=== PATIENT | female | born 1970 | race Two or more races ===

== ENCOUNTER 2017-01-20 02:15 | Inpatient (IN) | payer MEDICAID ==
[~2017-01-20] VITALS: Ht 137.2 cm; Wt 50.6 kg
[2017-01-20] VITALS (15 sets, daily range): BP systolic 99–134; BP diastolic 53–92
[2017-01-20] MEDS ORDERED: IPRATROPIUM BROM 0.5 MG/2.5ML INH SOL ONE (02:37)
[2017-01-20] MEDS ORDERED: ALBUTEROL SULF 2.5 MG/0.5ML(0.5%) NEB SOLN ONE (02:37)
[2017-01-20 02:44] LABS: Basophils # (auto) 0.1 uL; Basophils % (auto) 0.3 % (0.0-2.0); DEFINITIVE VIEW TRANSMISSION; Eosinophils # (auto) 0 uL; Hematocrit 25.7 % (36.0-46.0); Hemoglobin 7.2 g/dL (12.2-16.2); Lymphocytes # (auto) 3.6 uL; Lymphocytes % (auto) 17.8 % (10.0-50.0); Mean Corpuscular Hemoglobin 15.8 pg (28.0-32.0); Mean Corpuscular Hgb Conc. 27.9 g/dL (32.0-36.0); Mean Corpuscular Volume 56.4 fL (80.0-100.0); Mean Platelet Volume 9.3 fL (7.4-10.4); Monocytes # (auto) 0.5 uL; Monocytes % (auto) 2.3 % (0.0-12.0); Neutrophils # (auto) 16.1 uL; Neutrophils % (auto) 79.6 % (37.0-80.0); White Blood Cell 20.3 10^3/uL (4.4-10.8)
[2017-01-20 02:55] LABS: Red Cell Distribution Width 23.6 % (11.6-16.0)
[2017-01-20 02:58] LABS: Platelet Count (auto) 886 10^3/uL (140-450)
[2017-01-20 03:11] LABS: B-Type Natriuretic Peptide 14.7 pg/mL (0-100)
[2017-01-20 03:12] LABS: Temperature: 20.4 C (20.0-25.0)
[2017-01-20 03:13] LABS: Albumin 3.4 g/dL (3.4-5.0); BUN/Creatinine Ratio 30.4; Bilirubin, Total 0.4 mg/dL (0.2-1.0); Calcium 7.9 mg/dL (8.5-10.1); Magnesium 2.1 mg/dL (1.6-2.6); Potassium 3.3 mmol/L (3.5-5.1); Total Protein 7.6 g/dL (6.4-8.2)
[2017-01-20 04:04] LABS: REFLEX LACTIC ACID YES OR NO YES
[2017-01-20 04:59] LABS: Anisocytosis Moderate; Hypochromia Marked; Microcytosis Marked; Ovalocytes MODERATE; Platelet Estimate Markedly Increased
[2017-01-20 05:13] LABS: Lactic Acid w/Reflex 2.6 mmol/L (0.4-2.0)
[2017-01-20 05:14] LABS: REFLEX LACTIC ACID YES OR NO NO
[2017-01-20] MEDS ORDERED: IPRATROPIUM BROM 0.5 MG/2.5ML INH SOL NEB ONE ×2 (05:45→09:00)
[2017-01-20] MEDS ORDERED: ALBUTEROL SULF 2.5 MG/0.5ML(0.5%) NEB SOLN NEB ONE ×2 (05:45→09:00)
[2017-01-20] MEDS ORDERED: SODIUM CHLORIDE 0.9% 250 ML IV ONE (07:14)
[2017-01-20] MEDS ORDERED: SODIUM CHLORIDE 0.9% 1,000 ML IV ONE ×3 (07:14)
[2017-01-20] MEDS ORDERED: metroNIDAZOLE 500MG/100ML 100 ML IV ONE (07:15)
[2017-01-20] MEDS ORDERED: PIPERACILLIN-TAZOB 3.375GM 100 ML IV ONE (07:15)
[2017-01-20] MEDS ORDERED: SODIUM BICARBONATE 8.4% INJ 50ML SYRINGE IV ONE (11:00)
[2017-01-20] MEDS ORDERED: EPINEPHrine HCL 1 MG/10 ML SYRG IV ONE (11:00)
[2017-01-20 11:12] LABS: Urine Bilirubin Negative (Negative); Urine Blood TRACE /uL (Negative); Urine Color Yellow (Yellow); Urine Glucose Normal (Normal); Urine RBC 2 /hpf (0 - 4); Urine Squamous Epithelial Cell FEW /hpf (<5); Urine Urobilinogen Normal (Negative)
[2017-01-20 11:15] LABS: Urine Ketone 2+ (Negative); Urine Nitrite POSITIVE (Negative)
[2017-01-20] MEDS ORDERED: cefTRIAXone 1GM/50ML D5W 50 ML IV ONE (11:30)
[2017-01-20] MEDS ORDERED: VANCOMYCIN PER PHARMACY 0 MG IV SCH (11:30)
[2017-01-20] MEDS ORDERED: TEMAZEPAM 15 MG CAP PO PRN (11:45)
[2017-01-20] MEDS ORDERED: DOCUSATE SOD 100 MG CAP PO PRN (11:45)
[2017-01-20] MEDS ORDERED: DEXTROSE (50%) 50ML SYRG IV PRN (11:45)
[2017-01-20] MEDS ORDERED: POTASSIUM CHL 10% (20 MEQ/15ML) ORAL SOLN PO ONE (11:45)
[2017-01-20] MEDS ORDERED: IOHEXOL 350 MG/ML 100ML IJ ONE (11:45)
[2017-01-20] MEDS ORDERED: NITROGLYCERIN 0.4 MG SL TAB SL PRN (11:45)
[2017-01-20] MEDS ORDERED: MORPHINE SULF INJ 2 MG/ML SYRINGE 1ML IV PRN (11:45)
[2017-01-20] MEDS ORDERED: HYDROcodone-ACET 5/325MG TAB PO PRN (11:45)
[2017-01-20] MEDS ORDERED: ENOXAPARIN SOD 40 MG/0.4 ML SYRINGE SC ONE (12:00)
[2017-01-20] MEDS ORDERED: ZINC SULFATE 220 MG CAP PO ONE (12:00)
[2017-01-20] MEDS ORDERED: MULTIPLE VITAMIN TAB PO ONE (12:00)
[2017-01-20] MEDS: VANCOMYCIN 750 MG in D5W 5% 250 ML IV SCH (13:04)
[2017-01-20] MEDS: SODIUM CHLORIDE 0.9% 1,000 ML IV SCH (14:14)
[2017-01-20 15:40] LABS: INR 1.05 (0.9-1.15); Prothrombin Time 11.3 sec (9.37-12.3)
[2017-01-20] MEDS: InsuLIN REG 1unit/0.01ml Soln (100units/ml) SC SCH ×2 (17:00→21:52)
[2017-01-20] MEDS: ACCU-CHEK COMFORT CURVE STRIP VI SCH ×2 (17:15→21:52)
[2017-01-20] MEDS: ASCORBIC ACID 500 MG TAB PO SCH (22:00)
[2017-01-20] MEDS: FAMOTIDINE 20 MG TAB PO SCH (22:00)
[2017-01-21] VITALS (10 sets, daily range): BP systolic 73–140; BP diastolic 31–88
[2017-01-21] MEDS: SODIUM CHLORIDE 0.9% 1,000 ML IV SCH ×2 (04:18→20:58)
[2017-01-21] MEDS: InsuLIN REG 1unit/0.01ml Soln (100units/ml) SC SCH ×4 (07:00→22:00)
[2017-01-21] MEDS: ACCU-CHEK COMFORT CURVE STRIP VI SCH ×4 (07:04→22:00)
[2017-01-21] MEDS: cefTRIAXone 1GM/50ML D5W 50 ML IV SCH (08:44)
[2017-01-21 08:52] LABS: Basophils # (auto) 0 uL; Basophils % (auto) 0.3 % (0.0-2.0); DEFINITIVE VIEW TRANSMISSION; Eosinophils # (auto) 0 uL; Hematocrit 39.8 % (36.0-46.0); Hemoglobin 12.6 g/dL (12.2-16.2); Lymphocytes # (auto) 1.6 uL; Lymphocytes % (auto) 14.1 % (10.0-50.0); Mean Corpuscular Hgb Conc. 31.5 g/dL (32.0-36.0); Mean Corpuscular Volume 66.4 fL (80.0-100.0); Mean Platelet Volume 9.2 fL (7.4-10.4); Monocytes # (auto) 0.6 uL; Monocytes % (auto) 5.4 % (0.0-12.0); Neutrophils % (auto) 80.2 % (37.0-80.0); Platelet Count (auto) 647 10^3/uL (140-450); SUSPECT VIEW TRANSMISSION; White Blood Cell 11.2 10^3/uL (4.4-10.8)
[2017-01-21 09:03] LABS: Red Cell Distribution Width 34.5 % (11.6-16.0)
[2017-01-21 09:14] LABS: Albumin 3.1 g/dL (3.4-5.0); Alkaline Phosphatase 112 U/L (45-117); Anion Gap 15 (5-15); Aspartate Aminotransferase 17 U/L (15-37); BUN/Creatinine Ratio 6.7; Bilirubin, Total 0.7 mg/dL (0.2-1.0); Blood Urea Nitrogen 1 mg/dL (7-18); Calcium 8.3 mg/dL (8.5-10.1); Carbon Dioxide 16 mmol/L (21-32); Chloride 115 mmol/L (98-107); GFR African American 689 mL/min; GFR Non-African American 569 mL/min; Glucose 103 mg/dL (74-106); Sodium 146 mmol/L (136-145); Total Protein 7.3 g/dL (6.4-8.2)
[2017-01-21 09:21] LABS: Potassium 2.6 mmol/L (3.5-5.1)
[2017-01-21] MEDS: FAMOTIDINE 20 MG TAB PO SCH ×2 (09:44→22:00)
[2017-01-21] MEDS: ZINC SULFATE 220 MG CAP PO SCH (09:44)
[2017-01-21] MEDS: ENOXAPARIN SOD 40 MG/0.4 ML SYRINGE SC SCH (09:44)
[2017-01-21] MEDS: ASCORBIC ACID 500 MG TAB PO SCH ×2 (09:44→22:00)
[2017-01-21] MEDS: MULTIPLE VITAMIN TAB PO SCH (09:44)
[2017-01-21] MEDS ORDERED: POTASSIUM CHLORIDE 40 MEQ, LIDOCAINE 1% (LOCAL ANESTH.) 4 ML in SODIUM CHL 0.9% 250 ML IV ONE ×2 (10:00→18:15)
[2017-01-21] MEDS: Boost Glucose Control 8 Ounces PO SCH ×3 (12:05→22:00)
[2017-01-21 15:11] LABS: Microcytosis Marked
[2017-01-21 15:13] LABS: Burr Cells MODERATE; Ovalocytes MODERATE
[2017-01-21 15:14] LABS: Anisocytosis Moderate; Hypochromia Marked
[2017-01-21 15:15] LABS: Platelet Estimate Increased
[2017-01-21] MEDS ORDERED: LIDOCAINE 1% HCL (LOCAL ANESTH.) INJ 20ML MDV ID ONE (16:00)
[2017-01-21] MEDS: VANCOMYCIN 750 MG in D5W 5% 250 ML IV SCH (16:22)
[2017-01-21 17:52] LABS: BUN/Creatinine Ratio 3.3; Calcium 6.7 mg/dL (8.5-10.1)
[2017-01-21 18:03] LABS: Potassium 2.9 mmol/L (3.5-5.1)
[2017-01-21] MEDS ORDERED: ALBUTEROL SULF 2.5 MG/0.5ML(0.5%) NEB SOLN ONE (20:14)
[2017-01-21] MEDS: SODIUM CHLOR 0.9% PF (SALINE LOCK) 10ML VIAL IV SCH (22:00)
[2017-01-21] MEDS ORDERED: VITAMINS A & D (TOPICAL) OINT 5GM TOP PRN (22:15)
[2017-01-22] VITALS (9 sets, daily range): BP systolic 95–138; BP diastolic 47–99
[2017-01-22 04:22] LABS: Albumin 2.6 g/dL (3.4-5.0); Alkaline Phosphatase 93 U/L (45-117); Anion Gap 13 (5-15); Aspartate Aminotransferase 19 U/L (15-37); Bilirubin, Total 0.7 mg/dL (0.2-1.0); Blood Urea Nitrogen 3 mg/dL (7-18); Calcium 8.3 mg/dL (8.5-10.1); Carbon Dioxide 12 mmol/L (21-32); Chloride 121 mmol/L (98-107); GFR African American 689 mL/min; GFR Non-African American 569 mL/min; Glucose 82 mg/dL (74-106); Sodium 146 mmol/L (136-145); Total Protein 6.1 g/dL (6.4-8.2)
[2017-01-22 04:26] LABS: Basophils # (auto) 0 uL; Basophils % (auto) 0.2 % (0.0-2.0); DEFINITIVE VIEW TRANSMISSION; Eosinophils # (auto) 0 uL; Eosinophils % (auto) 0.1 % (0.0-7.0); Hematocrit 34.3 % (36.0-46.0); Hemoglobin 10.7 g/dL (12.2-16.2); Lymphocytes # (auto) 1.9 uL; Lymphocytes % (auto) 13.8 % (10.0-50.0); Mean Corpuscular Hemoglobin 20.6 pg (28.0-32.0); Mean Corpuscular Hgb Conc. 31.3 g/dL (32.0-36.0); Mean Corpuscular Volume 66.1 fL (80.0-100.0); Mean Platelet Volume 9.5 fL (7.4-10.4); Monocytes # (auto) 0.6 uL; Monocytes % (auto) 3.9 % (0.0-12.0); Neutrophils # (auto) 11.5 uL; Platelet Count (auto) 605 10^3/uL (140-450); SUSPECT VIEW TRANSMISSION
[2017-01-22 04:38] LABS: Red Cell Distribution Width 34.6 % (11.6-16.0)
[2017-01-22 05:04] LABS: Anisocytosis Moderate; Burr Cells MODERATE; Hypochromia Marked; Platelet Estimate Increased
[2017-01-22 05:07] LABS: Ovalocytes MODERATE; Schistocytes FEW
[2017-01-22] MEDS: Boost Glucose Control 8 Ounces PO SCH ×4 (06:00→22:00)
[2017-01-22] MEDS: ACCU-CHEK COMFORT CURVE STRIP VI SCH ×2 (07:00→11:43)
[2017-01-22] MEDS: InsuLIN REG 1unit/0.01ml Soln (100units/ml) SC SCH ×2 (07:00→11:30)
[2017-01-22] MEDS: ZINC SULFATE 220 MG CAP PO SCH (10:00)
[2017-01-22] MEDS: FAMOTIDINE 20 MG TAB PO SCH ×2 (10:00→22:31)
[2017-01-22] MEDS: ASCORBIC ACID 500 MG TAB PO SCH ×2 (10:00→22:00)
[2017-01-22] MEDS: MULTIPLE VITAMIN TAB PO SCH (10:00)
[2017-01-22] MEDS: ENOXAPARIN SOD 40 MG/0.4 ML SYRINGE SC SCH (10:00)
[2017-01-22] MEDS: SODIUM CHLOR 0.9% PF (SALINE LOCK) 10ML VIAL IV SCH ×2 (10:06→22:30)
[2017-01-22] MEDS: cefTRIAXone 1GM/50ML D5W 50 ML IV SCH (10:06)
[2017-01-22] MEDS: ALBUTEROL SULF 2.5 MG/0.5ML(0.5%) NEB SOLN NEB SCH ×2 (10:20→18:18)
[2017-01-22] MEDS: IPRATROPIUM BROM 0.5 MG/2.5ML INH SOL NEB SCH ×3 (10:20→22:10)
[2017-01-22] MEDS: VANCOMYCIN 750 MG in D5W 5% 250 ML IV SCH (13:25)
[2017-01-22] MEDS: PIPERACILLIN-TAZOB 3.375GM 100 ML IV SCH (18:07)
[2017-01-22] MEDS: MORPHINE SULF INJ 2 MG/ML SYRINGE 1ML IV PRN (22:33)
[2017-01-22] MEDS: ONDANSETRON HCL 4 MG/2 ML VIAL IV PRN (22:34)
[2017-01-23] VITALS (10 sets, daily range): BP systolic 78–127; BP diastolic 26–99
[2017-01-23] MEDS: PIPERACILLIN-TAZOB 3.375GM 100 ML IV SCH ×5 (00:03→23:38)
[2017-01-23] MEDS: SODIUM CHLORIDE 0.9% 1,000 ML IV SCH ×3 (00:20→23:20)
[2017-01-23] MEDS: MORPHINE SULF INJ 2 MG/ML SYRINGE 1ML IV PRN (02:18)
[2017-01-23] MEDS: IPRATROPIUM BROM 0.5 MG/2.5ML INH SOL NEB SCH ×6 (02:21→22:20)
[2017-01-23] MEDS: Boost Glucose Control 8 Ounces PO SCH ×4 (05:40→21:34)
[2017-01-23 09:29] LABS: Basophils # (auto) 0.1 uL; Basophils % (auto) 0.8 % (0.0-2.0); DEFINITIVE VIEW TRANSMISSION; Eosinophils # (auto) 0 uL; Hematocrit 35.6 % (36.0-46.0); Hemoglobin 11.4 g/dL (12.2-16.2); Lymphocytes # (auto) 2.3 uL; Lymphocytes % (auto) 17.3 % (10.0-50.0); Mean Corpuscular Volume 65.8 fL (80.0-100.0); Mean Platelet Volume 10.2 fL (7.4-10.4); Monocytes # (auto) 0.8 uL; Monocytes % (auto) 5.9 % (0.0-12.0); Neutrophils # (auto) 10.3 uL; Platelet Count (auto) 583 10^3/uL (140-450); SUSPECT VIEW TRANSMISSION; White Blood Cell 13.5 10^3/uL (4.4-10.8)
[2017-01-23] MEDS: SODIUM CHLOR 0.9% PF (SALINE LOCK) 10ML VIAL IV SCH ×2 (10:00→21:34)
[2017-01-23] MEDS: ASCORBIC ACID 500 MG TAB PO SCH ×2 (10:00→21:34)
[2017-01-23 10:43] LABS: Calcium 8.5 mg/dL (8.5-10.1); Potassium 3.5 mmol/L (3.5-5.1)
[2017-01-23] MEDS: ZINC SULFATE 220 MG CAP PO SCH (10:46)
[2017-01-23] MEDS: FAMOTIDINE 20 MG TAB PO SCH ×2 (10:46→21:34)
[2017-01-23] MEDS: ENOXAPARIN SOD 40 MG/0.4 ML SYRINGE SC SCH (10:47)
[2017-01-23] MEDS: MULTIPLE VITAMIN TAB PO SCH (10:47)
[2017-01-23 14:17] LABS: Microcytosis Marked
[2017-01-23 14:18] LABS: Hypochromia Marked
[2017-01-23 14:20] LABS: Anisocytosis Marked
[2017-01-23 14:21] LABS: Burr Cells FEW; Ovalocytes MODERATE; Schistocytes FEW
[2017-01-23 14:22] LABS: Platelet Estimate Increased
[2017-01-23] MEDS: MUPIROCIN 2% OINT 22GM EACHNOSTRI SCH ×2 (16:26→21:34)
[2017-01-24] VITALS (10 sets, daily range): BP systolic 93–123; BP diastolic 64–93
[2017-01-24] MEDS: IPRATROPIUM BROM 0.5 MG/2.5ML INH SOL NEB SCH ×6 (02:00→22:37)
[2017-01-24] MEDS: ONDANSETRON HCL 4 MG/2 ML VIAL IV PRN (03:46)
[2017-01-24] MEDS: PIPERACILLIN-TAZOB 3.375GM 100 ML IV SCH ×4 (05:08→23:02)
[2017-01-24] MEDS: Boost Glucose Control 8 Ounces PO SCH ×4 (05:22→21:39)
[2017-01-24 07:24] LABS: Basophils # (auto) 0 uL; DEFINITIVE VIEW TRANSMISSION; Eosinophils # (auto) 0 uL; Mean Corpuscular Volume 65.4 fL (80.0-100.0); SUSPECT VIEW TRANSMISSION
[2017-01-24 07:30] LABS: Basophils % (auto) 0.2 % (0.0-2.0); Eosinophils % (auto) 0.2 % (0.0-7.0); Hematocrit 32.2 % (36.0-46.0); Hemoglobin 10.3 g/dL (12.2-16.2); Lymphocytes # (auto) 2.1 uL; Lymphocytes % (auto) 30.4 % (10.0-50.0); Mean Corpuscular Hemoglobin 20.9 pg (28.0-32.0); Mean Platelet Volume 9.2 fL (7.4-10.4); Monocytes # (auto) 0.7 uL; Monocytes % (auto) 10.3 % (0.0-12.0); Neutrophils % (auto) 58.9 % (37.0-80.0); Platelet Count (auto) 515 10^3/uL (140-450); White Blood Cell 6.8 10^3/uL (4.4-10.8)
[2017-01-24 08:17] LABS: Anisocytosis Marked; Burr Cells FEW; Giant Platelets Few; Hypochromia Marked; Microcytosis Marked; Ovalocytes MODERATE; Platelet Estimate Increased; Schistocytes FEW
[2017-01-24] MEDS: ZINC SULFATE 220 MG CAP PO SCH (09:34)
[2017-01-24] MEDS: ASCORBIC ACID 500 MG TAB PO SCH ×3 (09:34→21:41)
[2017-01-24] MEDS: SODIUM CHLOR 0.9% PF (SALINE LOCK) 10ML VIAL IV SCH ×2 (09:35→21:39)
[2017-01-24] MEDS: FAMOTIDINE 20 MG TAB PO SCH ×2 (09:35→21:39)
[2017-01-24] MEDS: MUPIROCIN 2% OINT 22GM EACHNOSTRI SCH ×2 (09:35→21:39)
[2017-01-24] MEDS: ENOXAPARIN SOD 40 MG/0.4 ML SYRINGE SC SCH ×2 (09:35→09:45)
[2017-01-24] MEDS: MULTIPLE VITAMIN TAB PO SCH (09:35)
[2017-01-24] MEDS ORDERED: LACTULOSE 20Gm/30ML SOLN PO ONE (11:15)
[2017-01-24] MEDS: ACETAMINOPHEN 325 MG TAB PO PRN (12:02)
[2017-01-24] MEDS: LACTULOSE 20Gm/30ML SOLN PO SCH ×2 (17:34→23:01)
[2017-01-24] MEDS: ALBUTEROL SULF 2.5 MG/0.5ML(0.5%) NEB SOLN NEB PRN ×2 (19:59→22:37)
[2017-01-24] MEDS ORDERED: LORazepam 2MG/ML-1ML VIAL IV ONE (23:00)
[2017-01-25] VITALS (69 sets, daily range): BP systolic 14–133; BP diastolic 13–91
[2017-01-25 02:00] LABS: DEFINITIVE VIEW TRANSMISSION; Hematocrit 33.6 % (36.0-46.0); Hemoglobin 10.2 g/dL (12.2-16.2); Mean Corpuscular Hemoglobin 20.5 pg (28.0-32.0); Mean Corpuscular Hgb Conc. 30.3 g/dL (32.0-36.0); Mean Corpuscular Volume 67.6 fL (80.0-100.0); Mean Platelet Volume 8.4 fL (7.4-10.4); Platelet Count (auto) 551 10^3/uL (140-450); SUSPECT VIEW TRANSMISSION; White Blood Cell 23.6 10^3/uL (4.4-10.8)
[2017-01-25 02:12] LABS: Metamyelocytes % 0; Myelocytes % 0; Promyelocytes % 0; Reactive Lymphocytes 0; Red Cell Distribution Width 34.8 % (11.6-16.0)
[2017-01-25] MEDS ORDERED: IOHEXOL 350 MG/ML 100ML IJ ONE (02:15)
[2017-01-25 02:17] LABS: Albumin 2.9 g/dL (3.4-5.0); Anion Gap 12 (5-15); Aspartate Aminotransferase 18 U/L (15-37); BUN/Creatinine Ratio 53.3; Blood Urea Nitrogen 8 mg/dL (7-18); Calcium 8.3 mg/dL (8.5-10.1); Carbon Dioxide 21 mmol/L (21-32); Chloride 108 mmol/L (98-107); GFR African American 689 mL/min; GFR Non-African American 569 mL/min; Glucose 213 mg/dL (74-106); Magnesium 2.1 mg/dL (1.6-2.6); Potassium 3.7 mmol/L (3.5-5.1); Sodium 141 mmol/L (136-145)
[2017-01-25 02:19] LABS: Alkaline Phosphatase 125 U/L (45-117); Bilirubin, Total 0.6 mg/dL (0.2-1.0); Total Protein 6.8 g/dL (6.4-8.2)
[2017-01-25] MEDS: IPRATROPIUM BROM 0.5 MG/2.5ML INH SOL NEB SCH ×6 (02:30→22:05)
[2017-01-25 03:12] LABS: Platelet Estimate Increased
[2017-01-25 03:13] LABS: Anisocytosis Marked; Burr Cells FEW; Giant Platelets Few; Hypochromia Marked; Microcytosis Marked; Ovalocytes FEW; Tear Drop Cells FEW
[2017-01-25] MEDS: SODIUM CHLORIDE 0.9% 1,000 ML IV SCH (05:23)
[2017-01-25] MEDS: LACTULOSE 20Gm/30ML SOLN PO SCH ×3 (05:23→18:00)
[2017-01-25] MEDS: PIPERACILLIN-TAZOB 3.375GM 100 ML IV SCH ×3 (05:23→22:00)
[2017-01-25] MEDS: Boost Glucose Control 8 Ounces PO SCH ×4 (05:24→22:00)
[2017-01-25] MEDS ORDERED: SODIUM CHLORIDE 0.9% 500 ML IV ONE (05:30)
[2017-01-25] MEDS: ALBUTEROL SULF 2.5 MG/0.5ML(0.5%) NEB SOLN NEB PRN ×4 (06:29→22:05)
[2017-01-25 08:50] LABS: DEFINITIVE VIEW TRANSMISSION; Hematocrit 34.2 % (36.0-46.0); Hemoglobin 10.3 g/dL (12.2-16.2); Mean Corpuscular Hemoglobin 20.4 pg (28.0-32.0); Mean Corpuscular Hgb Conc. 30.1 g/dL (32.0-36.0); Mean Corpuscular Volume 67.7 fL (80.0-100.0); Mean Platelet Volume 8.2 fL (7.4-10.4); Platelet Count (auto) 588 10^3/uL (140-450); SUSPECT VIEW TRANSMISSION; White Blood Cell 20.7 10^3/uL (4.4-10.8)
[2017-01-25 08:57] LABS: Red Cell Distribution Width 34.8 % (11.6-16.0)
[2017-01-25 08:58] LABS: Metamyelocytes % 0; Myelocytes % 0; Promyelocytes % 0; Reactive Lymphocytes 0
[2017-01-25 09:14] LABS: Albumin 2.7 g/dL (3.4-5.0); Bilirubin, Total 0.7 mg/dL (0.2-1.0); Calcium 8.2 mg/dL (8.5-10.1); Potassium 3.2 mmol/L (3.5-5.1); Total Protein 6.8 g/dL (6.4-8.2)
[2017-01-25] MEDS: FAMOTIDINE 20 MG TAB PO SCH ×2 (10:00→22:00)
[2017-01-25] MEDS: MUPIROCIN 2% OINT 22GM EACHNOSTRI SCH (10:00)
[2017-01-25] MEDS: MULTIPLE VITAMIN TAB PO SCH (10:00)
[2017-01-25] MEDS: ZINC SULFATE 220 MG CAP PO SCH (10:00)
[2017-01-25] MEDS: ASCORBIC ACID 500 MG TAB PO SCH ×2 (10:00→22:00)
[2017-01-25 10:04] LABS: Anisocytosis Marked; Burr Cells FEW; Giant Platelets Few; Hypochromia Marked; Microcytosis Marked; Ovalocytes FEW; Platelet Estimate Increased; Tear Drop Cells FEW
[2017-01-25] MEDS: SODIUM CHLOR 0.9% PF (SALINE LOCK) 10ML VIAL IV SCH ×2 (10:19→22:00)
[2017-01-25 11:04] LABS: Lactic Acid w/Reflex 2.1 mmol/L (0.4-2.0)
[2017-01-25 11:09] LABS: REFLEX LACTIC ACID YES OR NO NO
[2017-01-25] MEDS ORDERED: VANCOMYCIN PER PHARMACY 0 MG IV SCH (11:45)
[2017-01-25] MEDS ORDERED: VANCOMYCIN 1GM/250ML D5W 250 ML IV ONE (12:15)
[2017-01-25] MEDS: ENOXAPARIN SOD 40 MG/0.4 ML SYRINGE SC SCH (12:36)
[2017-01-25] MEDS ORDERED: POTASSIUM CHL 20MEQ/100ML 100 ML IV ONE (13:00)
[2017-01-25] MEDS: NOREPINEPHRINE BITARTRATE 250 ML IV SCH (13:00)
[2017-01-25] MEDS ORDERED: Replete/Fiber/Ultrapak 1 Liter GT SCH (14:30)
[2017-01-25] MEDS: ACETYLCYSTEINE 20%(200MG/ML) SOL 4ML NEB SCH ×3 (14:55→22:05)
[2017-01-26] VITALS (72 sets, daily range): BP systolic 89–147; BP diastolic 36–96
[2017-01-26] MEDS: PIPERACILLIN-TAZOB 3.375GM 100 ML IV SCH ×4 (01:00→17:43)
[2017-01-26] MEDS: IPRATROPIUM BROM 0.5 MG/2.5ML INH SOL NEB SCH ×6 (02:34→22:00)
[2017-01-26] MEDS: ALBUTEROL SULF 2.5 MG/0.5ML(0.5%) NEB SOLN NEB PRN (02:34)
[2017-01-26] MEDS: ACETYLCYSTEINE 20%(200MG/ML) SOL 4ML NEB SCH ×6 (02:35→22:00)
[2017-01-26] MEDS: SODIUM CHLORIDE 0.9% 1,000 ML IV SCH (05:30)
[2017-01-26] MEDS: Boost Glucose Control 8 Ounces PO SCH ×4 (06:00→22:04)
[2017-01-26] MEDS: LACTULOSE 20Gm/30ML SOLN PO SCH ×3 (06:00→12:13)
[2017-01-26 07:45] LABS: DEFINITIVE VIEW TRANSMISSION; Hematocrit 29.5 % (36.0-46.0); Hemoglobin 8.9 g/dL (12.2-16.2); Mean Corpuscular Hemoglobin 20.7 pg (28.0-32.0); Mean Corpuscular Hgb Conc. 30.3 g/dL (32.0-36.0); Mean Corpuscular Volume 68.4 fL (80.0-100.0); Mean Platelet Volume 9.2 fL (7.4-10.4); Platelet Count (auto) 500 10^3/uL (140-450); SUSPECT VIEW TRANSMISSION; White Blood Cell 6.7 10^3/uL (4.4-10.8)
[2017-01-26 07:57] LABS: Red Cell Distribution Width 35.7 % (11.6-16.0)
[2017-01-26 07:58] LABS: Metamyelocytes % 0; Myelocytes % 0; Promyelocytes % 0; Reactive Lymphocytes 0
[2017-01-26 08:23] LABS: Platelet Estimate Increased
[2017-01-26 08:24] LABS: Anisocytosis Marked; BUN/Creatinine Ratio 37.2; Calcium 8.3 mg/dL (8.5-10.1); Hypochromia Marked; Microcytosis Marked; Potassium 3.1 mmol/L (3.5-5.1)
[2017-01-26] MEDS: SODIUM CHLOR 0.9% PF (SALINE LOCK) 10ML VIAL IV SCH ×2 (10:00→22:04)
[2017-01-26] MEDS: FAMOTIDINE 20 MG TAB PO SCH (10:00)
[2017-01-26] MEDS: MULTIPLE VITAMIN TAB PO SCH (10:00)
[2017-01-26] MEDS: ENOXAPARIN SOD 40 MG/0.4 ML SYRINGE SC SCH (10:00)
[2017-01-26] MEDS: ASCORBIC ACID 500 MG TAB PO SCH ×2 (10:00→22:04)
[2017-01-26] MEDS: ZINC SULFATE 220 MG CAP PO SCH (10:00)
[2017-01-26] MEDS: VANCOMYCIN 1GM/250ML D5W 250 ML IV SCH ×2 (12:13)
[2017-01-26] MEDS ORDERED: PANTOPRAZOLE SODIUM 40 MG/10 ML VIAL IV ONE (12:15)
[2017-01-26] MEDS: NOREPINEPHRINE BITARTRATE 250 ML IV SCH (13:00)
[2017-01-27] VITALS (60 sets, daily range): BP systolic 87–150; BP diastolic 48–100
[2017-01-27] MEDS: PIPERACILLIN-TAZOB 3.375GM 100 ML IV SCH ×5 (00:29→23:45)
[2017-01-27] MEDS: VANCOMYCIN 1GM/250ML D5W 250 ML IV SCH ×2 (00:29→12:00)
[2017-01-27] MEDS: IPRATROPIUM BROM 0.5 MG/2.5ML INH SOL NEB SCH ×6 (02:22→22:22)
[2017-01-27] MEDS: ACETYLCYSTEINE 20%(200MG/ML) SOL 4ML NEB SCH ×6 (02:22→22:22)
[2017-01-27 03:37] LABS: Basophils # (auto) 0 uL; Basophils % (auto) 0.1 % (0.0-2.0); DEFINITIVE VIEW TRANSMISSION; Eosinophils # (auto) 0 uL; Hemoglobin 9.4 g/dL (12.2-16.2); Lymphocytes # (auto) 0.7 uL; Lymphocytes % (auto) 6.4 % (10.0-50.0); Mean Corpuscular Hgb Conc. 30.5 g/dL (32.0-36.0); Mean Corpuscular Volume 68.7 fL (80.0-100.0); Mean Platelet Volume 8.6 fL (7.4-10.4); Monocytes # (auto) 0.9 uL; Monocytes % (auto) 8.1 % (0.0-12.0); Neutrophils # (auto) 9.2 uL; Neutrophils % (auto) 85.4 % (37.0-80.0); Platelet Count (auto) 351 10^3/uL (140-450); SUSPECT VIEW TRANSMISSION; White Blood Cell 10.7 10^3/uL (4.4-10.8)
[2017-01-27 03:54] LABS: Red Cell Distribution Width 35.3 % (11.6-16.0)
[2017-01-27 03:57] LABS: Albumin 2.1 g/dL (3.4-5.0); Calcium 8.2 mg/dL (8.5-10.1); Magnesium 1.9 mg/dL (1.6-2.6)
[2017-01-27 04:01] LABS: Bilirubin, Total 0.6 mg/dL (0.2-1.0); Total Protein 5.8 g/dL (6.4-8.2)
[2017-01-27 04:06] LABS: Potassium 2.6 mmol/L (3.5-5.1)
[2017-01-27] MEDS: POTASSIUM CHL 20MEQ/100ML 100 ML IV SCH ×2 (04:39→06:53)
[2017-01-27 04:58] LABS: Anisocytosis Marked; Hypochromia Marked; Microcytosis Marked; Platelet Estimate Adequate
[2017-01-27 04:59] LABS: Ovalocytes MODERATE; Tear Drop Cells FEW
[2017-01-27] MEDS: SODIUM CHLORIDE 0.9% 1,000 ML IV SCH (05:30)
[2017-01-27] MEDS: Boost Glucose Control 8 Ounces PO SCH ×4 (06:00→22:00)
[2017-01-27] MEDS ORDERED: MAGNESIUM SULFATE 1GM/100ML 100 ML IV ONE (10:45)
[2017-01-27] MEDS: PANTOPRAZOLE SODIUM 40 MG/10 ML VIAL IV SCH (11:32)
[2017-01-27] MEDS: MULTIPLE VITAMIN TAB PO SCH (11:33)
[2017-01-27] MEDS: ZINC SULFATE 220 MG CAP PO SCH (11:33)
[2017-01-27] MEDS: ENOXAPARIN SOD 40 MG/0.4 ML SYRINGE SC SCH (11:33)
[2017-01-27] MEDS: SODIUM CHLOR 0.9% PF (SALINE LOCK) 10ML VIAL IV SCH ×2 (11:33→22:00)
[2017-01-27] MEDS: ASCORBIC ACID 500 MG TAB PO SCH ×2 (11:33→22:01)
[2017-01-27] MEDS: Fibersource Hn 1 Liter GT SCH (18:39)
[2017-01-28] VITALS (64 sets, daily range): BP systolic 82–140; BP diastolic 42–97
[2017-01-28] MEDS ORDERED: ALBUMIN 5% 250 ML IV ONE ×2 (00:06→00:15)
[2017-01-28 00:35] LABS: Basophils # (auto) 0 uL; Basophils % (auto) 0.3 % (0.0-2.0); DEFINITIVE VIEW TRANSMISSION; Eosinophils # (auto) 0 uL; Hematocrit 28.6 % (36.0-46.0); Hemoglobin 8.7 g/dL (12.2-16.2); Lymphocytes # (auto) 0.7 uL; Lymphocytes % (auto) 5.6 % (10.0-50.0); Mean Corpuscular Hemoglobin 20.6 pg (28.0-32.0); Mean Corpuscular Hgb Conc. 30.5 g/dL (32.0-36.0); Mean Corpuscular Volume 67.5 fL (80.0-100.0); Mean Platelet Volume 9.3 fL (7.4-10.4); Monocytes # (auto) 0.9 uL; Monocytes % (auto) 7.8 % (0.0-12.0); Neutrophils # (auto) 10.5 uL; Neutrophils % (auto) 86.3 % (37.0-80.0); Platelet Count (auto) 539 10^3/uL (140-450); SUSPECT VIEW TRANSMISSION; White Blood Cell 12.2 10^3/uL (4.4-10.8)
[2017-01-28 00:44] LABS: Red Cell Distribution Width 35.4 % (11.6-16.0)
[2017-01-28 00:58] LABS: BUN/Creatinine Ratio 62.5; Calcium 8.1 mg/dL (8.5-10.1); Magnesium 2.4 mg/dL (1.6-2.6); Potassium 3.2 mmol/L (3.5-5.1)
[2017-01-28 02:07] LABS: Anisocytosis Marked; Hypochromia Marked; Microcytosis Marked; Platelet Estimate Increased
[2017-01-28 02:08] LABS: Ovalocytes MODERATE; Tear Drop Cells FEW
[2017-01-28] MEDS ORDERED: MORPHINE SULF INJ 2 MG/ML SYRINGE 1ML ONE (02:25)
[2017-01-28] MEDS ORDERED: MORPHINE SULF INJ 2 MG/ML SYRINGE 1ML IV ONE (02:30)
[2017-01-28] MEDS: ACETYLCYSTEINE 20%(200MG/ML) SOL 4ML NEB SCH ×6 (02:48→22:18)
[2017-01-28] MEDS: IPRATROPIUM BROM 0.5 MG/2.5ML INH SOL NEB SCH ×6 (02:48→22:18)
[2017-01-28] MEDS: Boost Glucose Control 8 Ounces PO SCH ×4 (05:52→22:00)
[2017-01-28] MEDS: PIPERACILLIN-TAZOB 3.375GM 100 ML IV SCH ×4 (06:00→23:54)
[2017-01-28 06:41] LABS: Basophils # (auto) 0 uL; DEFINITIVE VIEW TRANSMISSION; Eosinophils # (auto) 0 uL; Hematocrit 25.6 % (36.0-46.0); Lymphocytes # (auto) 0.4 uL; Lymphocytes % (auto) 3.8 % (10.0-50.0); Mean Corpuscular Hemoglobin 21.1 pg (28.0-32.0); Mean Corpuscular Hgb Conc. 31.2 g/dL (32.0-36.0); Mean Corpuscular Volume 67.7 fL (80.0-100.0); Mean Platelet Volume 8.8 fL (7.4-10.4); Monocytes # (auto) 0.6 uL; Monocytes % (auto) 5.5 % (0.0-12.0); Neutrophils # (auto) 9.1 uL; Neutrophils % (auto) 90.7 % (37.0-80.0); Platelet Count (auto) 345 10^3/uL (140-450); SUSPECT VIEW TRANSMISSION; White Blood Cell 10.1 10^3/uL (4.4-10.8)
[2017-01-28 06:50] LABS: Red Cell Distribution Width 35.4 % (11.6-16.0)
[2017-01-28 07:07] LABS: Albumin 2.4 g/dL (3.4-5.0); BUN/Creatinine Ratio 68.2; Bilirubin, Total 0.7 mg/dL (0.2-1.0); Calcium 8.2 mg/dL (8.5-10.1); Magnesium 2.3 mg/dL (1.6-2.6); Total Protein 5.6 g/dL (6.4-8.2)
[2017-01-28 07:10] LABS: Potassium 2.7 mmol/L (3.5-5.1)
[2017-01-28] MEDS: SODIUM CHLORIDE 0.9% 1,000 ML IV SCH (08:00)
[2017-01-28] MEDS: POTASSIUM CHL 20MEQ/100ML 100 ML IV SCH ×3 (08:07→11:45)
[2017-01-28] MEDS: ASCORBIC ACID 500 MG TAB PO SCH ×2 (10:09→22:12)
[2017-01-28] MEDS: MULTIPLE VITAMIN TAB PO SCH (10:09)
[2017-01-28] MEDS: ENOXAPARIN SOD 40 MG/0.4 ML SYRINGE SC SCH (10:09)
[2017-01-28] MEDS: SODIUM CHLOR 0.9% PF (SALINE LOCK) 10ML VIAL IV SCH ×2 (10:09→22:12)
[2017-01-28] MEDS: ZINC SULFATE 220 MG CAP PO SCH (10:09)
[2017-01-28] MEDS: PANTOPRAZOLE SODIUM 40 MG/10 ML VIAL IV SCH (10:09)
[2017-01-28] MEDS: METOCLOPRAMIDE HCL 5MG/ml INJ 2ml VIAL IV PRN (11:20)
[2017-01-28] MEDS: METOPROLOL TARTRATE 25 MG TAB PO SCH ×2 (11:21→22:12)
[2017-01-28] MEDS ORDERED: ENALAPRIL MALEATE 2.5 MG TAB PO ONE (11:30)
[2017-01-28 14:05] LABS: Platelet Estimate Adequate
[2017-01-28 14:06] LABS: Anisocytosis Marked; Hypochromia Marked; Microcytosis Marked
[2017-01-28 14:07] LABS: Burr Cells FEW; Ovalocytes MODE; Tear Drop Cells FEW
[2017-01-28] MEDS: FLUCONAZOLE 200MG/100ML 100 ML IV SCH ×2 (14:39→15:28)
[2017-01-28] MEDS: FERROUS SULFATE 325 MG TAB PO SCH (18:17)
[2017-01-28] MEDS: ALBUTEROL SULF 2.5 MG/0.5ML(0.5%) NEB SOLN NEB PRN ×2 (18:40→22:18)
[2017-01-29] VITALS (87 sets, daily range): BP systolic 105–144; BP diastolic 71–99
[2017-01-29] MEDS: Fibersource Hn 1 Liter GT SCH
[2017-01-29] MEDS: ACETYLCYSTEINE 20%(200MG/ML) SOL 4ML NEB SCH ×6 (02:21→22:40)
[2017-01-29] MEDS: IPRATROPIUM BROM 0.5 MG/2.5ML INH SOL NEB SCH ×6 (02:21→22:40)
[2017-01-29] MEDS: ALBUTEROL SULF 2.5 MG/0.5ML(0.5%) NEB SOLN NEB PRN ×4 (02:21→14:16)
[2017-01-29] MEDS: SODIUM CHLORIDE 0.9% 1,000 ML IV SCH (05:30)
[2017-01-29 05:40] LABS: Hemoglobin 10.9 g/dL (12.2-16.2)
[2017-01-29] MEDS: Boost Glucose Control 8 Ounces PO SCH (06:00)
[2017-01-29] MEDS: PIPERACILLIN-TAZOB 3.375GM 100 ML IV SCH ×3 (06:04→17:54)
[2017-01-29 06:05] LABS: Albumin 2.1 g/dL (3.4-5.0); BUN/Creatinine Ratio 45.8; Bilirubin, Total 0.9 mg/dL (0.2-1.0); Calcium 8.7 mg/dL (8.5-10.1); Total Protein 5.8 g/dL (6.4-8.2)
[2017-01-29 06:25] LABS: Potassium 2.9 mmol/L (3.5-5.1)
[2017-01-29] MEDS: POTASSIUM CHL 20MEQ/100ML 100 ML IV SCH ×3 (07:58→10:45)
[2017-01-29] MEDS: FERROUS SULFATE 325 MG TAB PO SCH (07:58)
[2017-01-29] MEDS: ACETAMINOPHEN 325 MG TAB PO PRN (08:37)
[2017-01-29] MEDS: METOCLOPRAMIDE HCL 5MG/ml INJ 2ml VIAL IV PRN (08:37)
[2017-01-29] MEDS: VANCOMYCIN 500 MG in D5W 5% 100 ML IV SCH (09:26)
[2017-01-29] MEDS: PANTOPRAZOLE SODIUM 40 MG/10 ML VIAL IV SCH (09:26)
[2017-01-29] MEDS: ENOXAPARIN SOD 40 MG/0.4 ML SYRINGE SC SCH (09:26)
[2017-01-29] MEDS: FLUCONAZOLE 200MG/100ML 100 ML IV SCH (09:26)
[2017-01-29] MEDS: SODIUM CHLOR 0.9% PF (SALINE LOCK) 10ML VIAL IV SCH ×2 (09:26→21:41)
[2017-01-29] MEDS: ZINC SULFATE 220 MG CAP PO SCH (09:27)
[2017-01-29] MEDS: METOPROLOL TARTRATE 25 MG TAB PO SCH ×2 (09:27→22:01)
[2017-01-29] MEDS: MULTIPLE VITAMIN TAB PO SCH (09:27)
[2017-01-29] MEDS: ASCORBIC ACID 500 MG TAB PO SCH ×2 (09:27→22:01)
[2017-01-29] MEDS: ENALAPRIL MALEATE 2.5 MG TAB PO SCH (09:44)
[2017-01-30] VITALS (82 sets, daily range): BP systolic 89–149; BP diastolic 54–106
[2017-01-30] MEDS: ACETYLCYSTEINE 20%(200MG/ML) SOL 4ML NEB SCH ×6 (02:50→22:12)
[2017-01-30] MEDS: IPRATROPIUM BROM 0.5 MG/2.5ML INH SOL NEB SCH ×6 (02:50→22:12)
[2017-01-30 03:52] LABS: Hematocrit 33.6 % (36.0-46.0); Hemoglobin 10.4 g/dL (12.2-16.2)
[2017-01-30 04:13] LABS: BUN/Creatinine Ratio 57.9; Calcium 8.6 mg/dL (8.5-10.1); Magnesium 1.8 mg/dL (1.6-2.6); Potassium 3.1 mmol/L (3.5-5.1)
[2017-01-30] MEDS: SODIUM CHLORIDE 0.9% 1,000 ML IV SCH (05:30)
[2017-01-30] MEDS: PIPERACILLIN-TAZOB 3.375GM 100 ML IV SCH ×4 (06:16→18:02)
[2017-01-30 08:06] LABS: Basophils # (auto) 0 uL; Basophils % (auto) 0.1 % (0.0-2.0); DEFINITIVE VIEW TRANSMISSION; Eosinophils # (auto) 0 uL; Eosinophils % (auto) 0.1 % (0.0-7.0); Hematocrit 33.4 % (36.0-46.0); Hemoglobin 10.5 g/dL (12.2-16.2); Lymphocytes # (auto) 0.7 uL; Lymphocytes % (auto) 17.6 % (10.0-50.0); Mean Corpuscular Hemoglobin 22.1 pg (28.0-32.0); Mean Corpuscular Hgb Conc. 31.4 g/dL (32.0-36.0); Mean Corpuscular Volume 70.4 fL (80.0-100.0); Mean Platelet Volume 10.4 fL (7.4-10.4); Monocytes # (auto) 0.6 uL; Monocytes % (auto) 13.1 % (0.0-12.0); Neutrophils # (auto) 2.9 uL; Neutrophils % (auto) 69.1 % (37.0-80.0); Platelet Count (auto) 455 10^3/uL (140-450); SUSPECT VIEW TRANSMISSION; White Blood Cell 4.2 10^3/uL (4.4-10.8)
[2017-01-30 08:24] LABS: Red Cell Distribution Width 34.3 % (11.6-16.0)
[2017-01-30 09:55] LABS: Anisocytosis Marked; Hypochromia Marked; Platelet Estimate Adequate
[2017-01-30 09:56] LABS: Microcytosis Moderate; Ovalocytes FEW; Schistocytes FEW
[2017-01-30] MEDS: ZINC SULFATE 220 MG CAP PO SCH (10:06)
[2017-01-30] MEDS: VANCOMYCIN 500 MG in D5W 5% 100 ML IV SCH (10:06)
[2017-01-30] MEDS: SODIUM CHLOR 0.9% PF (SALINE LOCK) 10ML VIAL IV SCH ×2 (10:06→21:48)
[2017-01-30] MEDS: FLUCONAZOLE 200MG/100ML 100 ML IV SCH (10:06)
[2017-01-30] MEDS: PANTOPRAZOLE SODIUM 40 MG/10 ML VIAL IV SCH (10:06)
[2017-01-30] MEDS: ENOXAPARIN SOD 40 MG/0.4 ML SYRINGE SC SCH (10:07)
[2017-01-30] MEDS: MULTIPLE VITAMIN TAB PO SCH (10:07)
[2017-01-30] MEDS: ASCORBIC ACID 500 MG TAB PO SCH ×2 (10:07→21:48)
[2017-01-30] MEDS: METOPROLOL TARTRATE 25 MG TAB PO SCH ×2 (10:07→21:48)
[2017-01-30] MEDS: ENALAPRIL MALEATE 2.5 MG TAB PO SCH (10:11)
[2017-01-30] MEDS ORDERED: MAGNESIUM SULFATE 1GM/100ML 100 ML IV ONE ×2 (11:30→12:13)
[2017-01-30] MEDS ORDERED: POTASSIUM CHLORIDE 40 MEQ, LIDOCAINE 1% (LOCAL ANESTH.) 4 ML in SODIUM CHL 0.9% 250 ML IV ONE (12:00)
[2017-01-30] MEDS ORDERED: POTASSIUM CHL 20MEQ/100ML 0 ML IV ONE (12:13)
[2017-01-30] MEDS: Fibersource Hn 1 Liter GT SCH (22:40)
[2017-01-31] VITALS (65 sets, daily range): BP systolic 99–155; BP diastolic 57–99
[2017-01-31] MEDS: PIPERACILLIN-TAZOB 3.375GM 100 ML IV SCH ×4 (00:07→18:41)
[2017-01-31] MEDS: IPRATROPIUM BROM 0.5 MG/2.5ML INH SOL NEB SCH ×6 (02:48→22:19)
[2017-01-31] MEDS: ACETYLCYSTEINE 20%(200MG/ML) SOL 4ML NEB SCH ×6 (02:48→22:19)
[2017-01-31] MEDS: SODIUM CHLORIDE 0.9% 1,000 ML IV SCH (03:21)
[2017-01-31 04:51] LABS: Albumin 1.7 g/dL (3.4-5.0); Anion Gap 7 (5-15); BUN/Creatinine Ratio 73.3; Blood Urea Nitrogen 11 mg/dL (7-18); Calcium 8.5 mg/dL (8.5-10.1); Carbon Dioxide 25 mmol/L (21-32); Chloride 112 mmol/L (98-107); GFR African American 689 mL/min; GFR Non-African American 569 mL/min; Glucose 143 mg/dL (74-106); Magnesium 1.8 mg/dL (1.6-2.6); Sodium 144 mmol/L (136-145)
[2017-01-31 05:01] LABS: Alkaline Phosphatase 125 U/L (45-117); Aspartate Aminotransferase 31 U/L (15-37); Bilirubin, Total 0.5 mg/dL (0.2-1.0); Total Protein 5.5 g/dL (6.4-8.2)
[2017-01-31 05:36] LABS: Basophils # (auto) 0 uL; DEFINITIVE VIEW TRANSMISSION; Eosinophils # (auto) 0 uL; Hematocrit 33.2 % (36.0-46.0); Hemoglobin 10.7 g/dL (12.2-16.2); Lymphocytes # (auto) 0.7 uL; Mean Corpuscular Hemoglobin 22.5 pg (28.0-32.0); Mean Corpuscular Hgb Conc. 32.1 g/dL (32.0-36.0); Mean Corpuscular Volume 69.9 fL (80.0-100.0); Mean Platelet Volume 10.5 fL (7.4-10.4); Monocytes # (auto) 0.7 uL; Neutrophils # (auto) 1.5 uL; Nucleated Red Blood Cells % 2.6 %; Platelet Count (auto) 418 10^3/uL (140-450); SUSPECT VIEW TRANSMISSION; White Blood Cell 2.9 10^3/uL (4.4-10.8)
[2017-01-31] MEDS: POTASSIUM CHL 20MEQ/100ML 100 ML IV SCH ×3 (06:34→11:53)
[2017-01-31 07:12] LABS: Anisocytosis Moderate; Burr Cells FEW; Giant Platelets Few; Hypochromia Moderate; Ovalocytes FEW; Platelet Estimate Adequate
[2017-01-31 07:13] LABS: Microcytosis Moderate
[2017-01-31] MEDS: FLUCONAZOLE 200MG/100ML 100 ML IV SCH (09:53)
[2017-01-31] MEDS: ZINC SULFATE 220 MG CAP PO SCH (09:54)
[2017-01-31] MEDS: METOPROLOL TARTRATE 25 MG TAB PO SCH ×2 (09:54→21:36)
[2017-01-31] MEDS: PANTOPRAZOLE SODIUM 40 MG/10 ML VIAL IV SCH (09:54)
[2017-01-31] MEDS: MULTIPLE VITAMIN TAB PO SCH (09:55)
[2017-01-31] MEDS: ENALAPRIL MALEATE 2.5 MG TAB PO SCH (09:55)
[2017-01-31] MEDS: ASCORBIC ACID 500 MG TAB PO SCH ×2 (09:55→21:36)
[2017-01-31] MEDS: ENOXAPARIN SOD 40 MG/0.4 ML SYRINGE SC SCH (09:56)
[2017-01-31] MEDS: SODIUM CHLOR 0.9% PF (SALINE LOCK) 10ML VIAL IV SCH ×2 (09:56→22:00)
[2017-01-31] MEDS: VANCOMYCIN 500 MG in D5W 5% 100 ML IV SCH (11:19)
[2017-02-01] VITALS (54 sets, daily range): BP systolic 86–168; BP diastolic 50–107
[2017-02-01] MEDS: IPRATROPIUM BROM 0.5 MG/2.5ML INH SOL NEB SCH ×6 (02:26→22:14)
[2017-02-01] MEDS: ACETYLCYSTEINE 20%(200MG/ML) SOL 4ML NEB SCH ×6 (02:26→22:14)
[2017-02-01 04:14] LABS: Chloride 110 mmol/L (98-107); Potassium 3.7 mmol/L (3.5-5.1); Sodium 143 mmol/L (136-145)
[2017-02-01 04:18] LABS: Anion Gap 7 (5-15); Blood Urea Nitrogen 12 mg/dL (7-18); Calcium 8.7 mg/dL (8.5-10.1); Carbon Dioxide 26 mmol/L (21-32); GFR African American 689 mL/min; GFR Non-African American 569 mL/min; Glucose 125 mg/dL (74-106); Magnesium 1.6 mg/dL (1.6-2.6)
[2017-02-01 04:23] LABS: Phosphorus 1.9 mg/dL (2.5-4.90)
[2017-02-01 04:36] LABS: Basophils # (auto) 0 uL; Basophils % (auto) 0.1 % (0.0-2.0); DEFINITIVE VIEW TRANSMISSION; Eosinophils # (auto) 0 uL; Eosinophils % (auto) 0.1 % (0.0-7.0); Hematocrit 31.1 % (36.0-46.0); Lymphocytes % (auto) 26.9 % (10.0-50.0); Mean Corpuscular Hemoglobin 22.6 pg (28.0-32.0); Mean Corpuscular Hgb Conc. 32.2 g/dL (32.0-36.0); Mean Corpuscular Volume 70.3 fL (80.0-100.0); Mean Platelet Volume 10.6 fL (7.4-10.4); Monocytes # (auto) 0.7 uL; Neutrophils % (auto) 53.4 % (37.0-80.0); Platelet Count (auto) 485 10^3/uL (140-450); SUSPECT VIEW TRANSMISSION; White Blood Cell 3.8 10^3/uL (4.4-10.8)
[2017-02-01 04:55] LABS: Monocytes % (auto) 19.5 % (0.0-12.0)
[2017-02-01] MEDS: SODIUM CHLORIDE 0.9% 1,000 ML IV SCH (05:30)
[2017-02-01 05:31] LABS: Anisocytosis Moderate; Ovalocytes FEW; Platelet Estimate Increased
[2017-02-01 05:32] LABS: Polychromasia Slight
[2017-02-01] MEDS: PIPERACILLIN-TAZOB 3.375GM 100 ML IV SCH ×2 (06:00)
[2017-02-01] MEDS ORDERED: METOPROLOL TARTRATE 1MG/1ML-5ML VIAL IV ONE ×3 (06:29→18:15)
[2017-02-01] MEDS: FLUCONAZOLE 200MG/100ML 100 ML IV SCH (10:11)
[2017-02-01] MEDS: ENOXAPARIN SOD 40 MG/0.4 ML SYRINGE SC SCH (10:12)
[2017-02-01] MEDS: ENALAPRIL MALEATE 2.5 MG TAB PO SCH (10:12)
[2017-02-01] MEDS: SODIUM CHLOR 0.9% PF (SALINE LOCK) 10ML VIAL IV SCH ×2 (10:12→22:26)
[2017-02-01] MEDS: ZINC SULFATE 220 MG CAP PO SCH (10:20)
[2017-02-01] MEDS: PANTOPRAZOLE SODIUM 40 MG/10 ML VIAL IV SCH (10:22)
[2017-02-01] MEDS: MULTIPLE VITAMIN TAB PO SCH (10:22)
[2017-02-01] MEDS: ASCORBIC ACID 500 MG TAB PO SCH ×2 (10:59→22:25)
[2017-02-01] MEDS: METOPROLOL TARTRATE 25 MG TAB PO SCH ×3 (11:00→23:25)
[2017-02-01] MEDS ORDERED: MAGNESIUM SULFATE 1GM/100ML 100 ML IV ONE (11:15)
[2017-02-01] MEDS ORDERED: POTASSIUM CHL 20MEQ/100ML 100 ML IV ONE (11:15)
[2017-02-01] MEDS ORDERED: MEROPENEM 500MG IVPB 100 ML IV ONE (11:15)
[2017-02-01 11:22] LABS: Potassium 2.6 mmol/L (3.5-5.1)
[2017-02-01] MEDS: VANCOMYCIN 500 MG in D5W 5% 100 ML IV SCH (12:30)
[2017-02-01] MEDS: ALBUTEROL SULF 2.5 MG/0.5ML(0.5%) NEB SOLN NEB PRN (22:15)
[2017-02-01] MEDS: MEROPENEM 500MG IVPB 100 ML IV SCH (22:24)
[2017-02-01] MEDS: ACETAMINOPHEN 325 MG TAB PO PRN (22:25)
[2017-02-02] VITALS (65 sets, daily range): BP systolic 85–145; BP diastolic 54–97
[2017-02-02] MEDS: METOPROLOL TARTRATE 25 MG TAB PO SCH ×3 (02:05→06:18)
[2017-02-02] MEDS: IPRATROPIUM BROM 0.5 MG/2.5ML INH SOL NEB SCH ×6 (02:17→22:27)
[2017-02-02] MEDS: ACETYLCYSTEINE 20%(200MG/ML) SOL 4ML NEB SCH ×6 (02:17→22:27)
[2017-02-02] MEDS: SODIUM CHLORIDE 0.9% 1,000 ML IV SCH (05:30)
[2017-02-02] MEDS: FLUCONAZOLE 200MG/100ML 100 ML IV SCH (07:54)
[2017-02-02] MEDS: ENALAPRIL MALEATE 2.5 MG TAB PO SCH (10:00)
[2017-02-02] MEDS: ENOXAPARIN SOD 40 MG/0.4 ML SYRINGE SC SCH (10:14)
[2017-02-02] MEDS: MULTIPLE VITAMIN TAB PO SCH (10:15)
[2017-02-02] MEDS: ZINC SULFATE 220 MG CAP PO SCH (10:15)
[2017-02-02] MEDS: PANTOPRAZOLE SODIUM 40 MG/10 ML VIAL IV SCH (10:15)
[2017-02-02] MEDS: ASCORBIC ACID 500 MG TAB PO SCH ×2 (10:15→22:09)
[2017-02-02] MEDS: SODIUM CHLOR 0.9% PF (SALINE LOCK) 10ML VIAL IV SCH ×2 (10:16→22:10)
[2017-02-02] MEDS: VANCOMYCIN 500 MG in D5W 5% 100 ML IV SCH (10:56)
[2017-02-02] MEDS ORDERED: DOCUSATE SOD 100 MG CAP PO PRN (11:00)
[2017-02-02] MEDS ORDERED: ACETAMINOPHEN 325 MG TAB PO PRN (11:00)
[2017-02-02] MEDS ORDERED: ASCORBIC ACID 500 MG TAB PO ONE (11:15)
[2017-02-02] MEDS ORDERED: ZINC SULFATE 220 MG CAP PO ONE (11:15)
[2017-02-02] MEDS: MEROPENEM 500MG IVPB 100 ML IV SCH ×2 (12:00→22:10)
[2017-02-03] VITALS (53 sets, daily range): BP systolic 111–139; BP diastolic 69–92
[2017-02-03] MEDS: IPRATROPIUM BROM 0.5 MG/2.5ML INH SOL NEB SCH ×6 (02:30→22:39)
[2017-02-03] MEDS: ACETYLCYSTEINE 20%(200MG/ML) SOL 4ML NEB SCH ×6 (02:30→22:39)
[2017-02-03 03:53] LABS: Hematocrit 27.7 % (36.0-46.0); Hemoglobin 8.6 g/dL (12.2-16.2)
[2017-02-03] MEDS: VANCOMYCIN 500 MG in D5W 5% 100 ML IV SCH ×2 (04:06→22:00)
[2017-02-03 04:16] LABS: Anion Gap 8 (5-15); Blood Urea Nitrogen 12 mg/dL (7-18); Carbon Dioxide 28 mmol/L (21-32); Chloride 109 mmol/L (98-107); Glucose 126 mg/dL (74-106); Magnesium 1.7 mg/dL (1.6-2.6); Potassium 3.2 mmol/L (3.5-5.1); Sodium 145 mmol/L (136-145)
[2017-02-03 04:26] LABS: GFR African American 689 mL/min; GFR Non-African American 569 mL/min
[2017-02-03] MEDS: SODIUM CHLORIDE 0.9% 1,000 ML IV SCH ×2 (04:38→20:59)
[2017-02-03] MEDS: ALBUTEROL SULF 2.5 MG/0.5ML(0.5%) NEB SOLN NEB PRN ×2 (06:24→18:31)
[2017-02-03] MEDS: MEROPENEM 500MG IVPB 100 ML IV SCH ×2 (10:03→21:39)
[2017-02-03] MEDS: FLUCONAZOLE 200MG/100ML 100 ML IV SCH (10:03)
[2017-02-03] MEDS: ENOXAPARIN SOD 40 MG/0.4 ML SYRINGE SC SCH (10:03)
[2017-02-03] MEDS: PANTOPRAZOLE SODIUM 40 MG/10 ML VIAL IV SCH (10:03)
[2017-02-03] MEDS: MULTIPLE VITAMIN TAB PO SCH (10:04)
[2017-02-03] MEDS: ZINC SULFATE 220 MG CAP PO SCH (10:04)
[2017-02-03] MEDS: ENALAPRIL MALEATE 2.5 MG TAB PO SCH (10:04)
[2017-02-03] MEDS: ASCORBIC ACID 500 MG TAB PO SCH ×2 (10:04→21:37)
[2017-02-03] MEDS: METOPROLOL TARTRATE 25 MG TAB PO SCH ×2 (10:05→21:38)
[2017-02-03] MEDS: SODIUM CHLOR 0.9% PF (SALINE LOCK) 10ML VIAL IV SCH ×2 (10:05→22:00)
[2017-02-03] MEDS ORDERED: VITAMINS A & D (TOPICAL) OINT 5GM TOP PRN (10:45)
[2017-02-03] MEDS: POTASSIUM CHL 20MEQ/100ML 100 ML IV SCH ×2 (12:48→14:45)
[2017-02-03] MEDS: MAGNESIUM SULFATE 1GM/100ML 100 ML IV SCH ×2 (13:50→14:45)
[2017-02-03] MEDS: Fibersource Hn 1 Liter GT SCH (20:00)
[2017-02-04] VITALS (74 sets, daily range): BP systolic 112–143; BP diastolic 49–103
[2017-02-04] MEDS: ACETYLCYSTEINE 20%(200MG/ML) SOL 4ML NEB SCH ×6 (02:00→23:04)
[2017-02-04] MEDS: IPRATROPIUM BROM 0.5 MG/2.5ML INH SOL NEB SCH ×6 (02:00→23:04)
[2017-02-04 05:30] LABS: Hematocrit 32.7 % (36.0-46.0); Hemoglobin 10.6 g/dL (12.2-16.2)
[2017-02-04] MEDS: ALBUTEROL SULF 2.5 MG/0.5ML(0.5%) NEB SOLN NEB PRN ×2 (06:50→10:32)
[2017-02-04] MEDS: MEROPENEM 500MG IVPB 100 ML IV SCH ×2 (10:00→21:53)
[2017-02-04] MEDS: ZINC SULFATE 220 MG CAP PO SCH (10:00)
[2017-02-04] MEDS: FLUCONAZOLE 200MG/100ML 100 ML IV SCH (10:31)
[2017-02-04] MEDS: PANTOPRAZOLE SODIUM 40 MG/10 ML VIAL IV SCH (10:31)
[2017-02-04] MEDS: ENOXAPARIN SOD 40 MG/0.4 ML SYRINGE SC SCH (10:31)
[2017-02-04] MEDS: MULTIPLE VITAMIN TAB PO SCH (10:32)
[2017-02-04] MEDS: ASCORBIC ACID 500 MG TAB PO SCH ×2 (10:32→21:52)
[2017-02-04] MEDS: METOPROLOL TARTRATE 25 MG TAB PO SCH ×2 (10:32→21:52)
[2017-02-04] MEDS: SODIUM CHLOR 0.9% PF (SALINE LOCK) 10ML VIAL IV SCH ×2 (10:32→21:53)
[2017-02-04] MEDS: ENALAPRIL MALEATE 2.5 MG TAB PO SCH (10:33)
[2017-02-04] MEDS ORDERED: ALBUTEROL SULF 2.5 MG/0.5ML(0.5%) NEB SOLN NEB PRN (11:00)
[2017-02-04] MEDS ORDERED: VANCOMYCIN PER PHARMACY 0 MG IV SCH (11:00)
[2017-02-04] MEDS: VANCOMYCIN 500 MG in D5W 5% 100 ML IV SCH (16:07)
[2017-02-04] MEDS: Fibersource Hn 1 Liter GT SCH (22:00)
[2017-02-05] VITALS (79 sets, daily range): BP systolic 98–142; BP diastolic 60–97
[2017-02-05] MEDS: ACETYLCYSTEINE 20%(200MG/ML) SOL 4ML NEB SCH ×6 (02:23→22:02)
[2017-02-05] MEDS: IPRATROPIUM BROM 0.5 MG/2.5ML INH SOL NEB SCH ×6 (02:23→22:02)
[2017-02-05 04:33] LABS: DEFINITIVE VIEW TRANSMISSION; Hematocrit 31.4 % (36.0-46.0); Hemoglobin 10.1 g/dL (12.2-16.2); Mean Corpuscular Hgb Conc. 32.1 g/dL (32.0-36.0); Mean Corpuscular Volume 71.6 fL (80.0-100.0); Mean Platelet Volume 9.6 fL (7.4-10.4); Platelet Count (auto) 584 10^3/uL (140-450); SUSPECT VIEW TRANSMISSION; White Blood Cell 5.1 10^3/uL (4.4-10.8)
[2017-02-05 04:42] LABS: Red Cell Distribution Width 32.1 % (11.6-16.0)
[2017-02-05 04:43] LABS: Metamyelocytes % 0; Promyelocytes % 0; Reactive Lymphocytes 0
[2017-02-05] MEDS: SODIUM CHLORIDE 0.9% 1,000 ML IV SCH (05:06)
[2017-02-05 05:14] LABS: Anion Gap 9 (5-15); Blood Urea Nitrogen 9 mg/dL (7-18); Calcium 7.8 mg/dL (8.5-10.1); Carbon Dioxide 27 mmol/L (21-32); Chloride 107 mmol/L (98-107); GFR African American 689 mL/min; GFR Non-African American 569 mL/min; Glucose 122 mg/dL (74-106); Magnesium 2.1 mg/dL (1.6-2.6); Potassium 3.4 mmol/L (3.5-5.1); Sodium 143 mmol/L (136-145)
[2017-02-05 05:34] LABS: Myelocytes % 1
[2017-02-05 05:35] LABS: Anisocytosis Moderate; Hypochromia Moderate; Microcytosis Moderate; Ovalocytes FEW
[2017-02-05 05:36] LABS: Large Platelets FEW; Platelet Estimate Increa
[2017-02-05] MEDS: ASCORBIC ACID 500 MG TAB PO SCH ×2 (09:46→22:11)
[2017-02-05] MEDS: ZINC SULFATE 220 MG CAP PO SCH (09:46)
[2017-02-05] MEDS: METOPROLOL TARTRATE 25 MG TAB PO SCH ×2 (09:46→22:12)
[2017-02-05] MEDS: MULTIPLE VITAMIN TAB PO SCH (09:46)
[2017-02-05] MEDS: ENALAPRIL MALEATE 2.5 MG TAB PO SCH (09:47)
[2017-02-05] MEDS: PANTOPRAZOLE SODIUM 40 MG/10 ML VIAL IV SCH (09:47)
[2017-02-05] MEDS: SODIUM CHLOR 0.9% PF (SALINE LOCK) 10ML VIAL IV SCH ×2 (09:49→22:11)
[2017-02-05] MEDS: ENOXAPARIN SOD 40 MG/0.4 ML SYRINGE SC SCH (09:50)
[2017-02-05] MEDS ORDERED: D5W 5% IV SCH (10:00)
[2017-02-05] MEDS ORDERED: VANCOMYCIN IV SCH (10:00)
[2017-02-05] MEDS ORDERED: MICAFUNGIN SODIUM 100 MG in SODIUM CHL 0.9% 100 ML IV SCH (10:00)
[2017-02-05] MEDS ORDERED: METOPROLOL TARTRATE 1MG/1ML-5ML VIAL IV PRN (10:15)
[2017-02-05] MEDS ORDERED: POTASSIUM CHL 20MEQ/100ML 100 ML IV ONE (10:15)
[2017-02-05] MEDS: MEROPENEM 500MG IVPB 100 ML IV SCH ×2 (11:23→23:27)
[2017-02-06 00:02] VITALS: BP 136/93
[2017-02-06] MEDS ORDERED: VANCOMYCIN 750 MG in D5W 5% 250 ML IV SCH (04:00)
== END 2017-02-06 00:27 | disposition short-term general hospital (02) | DRG 720 ==
LOC: EDBD 02:15 → ER 02:21 → TELE 02:22 → DOU IN ICU 01-21 02:23 → ICU WEST 01-25 20:04
PROVIDERS: ADMIT Internal Medicine; ATTEND Internal Medicine
PROC: 5A1955Z Respiratory Ventilation, Greater than 96 Consecutive Hours (ICD-10-PCS; principal; 2017-01-20)
PROC: 0BH17EZ Insertion of Endotracheal Airway into Trachea, Via Natural or Artificial Opening (ICD-10-PCS; 2017-01-20)
PROC: 30233N1 Transfusion of Nonautologous Red Blood Cells into Peripheral Vein, Percutaneous Approach (ICD-10-PCS; 2017-01-20)
PROC: 05H833Z Insertion of Infusion Device into Left Axillary Vein, Percutaneous Approach (ICD-10-PCS; 2017-01-21)
PROC: 05H433Z Insertion of Infusion Device into Left Innominate Vein, Percutaneous Approach (ICD-10-PCS; 2017-01-27)
PROC: 05H333Z Insertion of Infusion Device into Right Innominate Vein, Percutaneous Approach (ICD-10-PCS; 2017-01-27)
DX: A41.9 Sepsis, unspecified organism (principal); I46.9 Cardiac arrest, cause unspecified; J69.0 Pneumonitis due to inhalation of food and vomit; G93.41 Metabolic encephalopathy; G93.1 Anoxic brain damage, not elsewhere classified; J96.01 Acute respiratory failure with hypoxia; J96.02 Acute respiratory failure with hypercapnia; L89.152 Pressure ulcer of sacral region, stage 2; Z99.11 Dependence on respirator [ventilator] status; Z93.0 Tracheostomy status; G82.20 Paraplegia, unspecified; E11.65 Type 2 diabetes mellitus with hyperglycemia; D75.89 Other specified diseases of blood and blood-forming organs; J20.9 Acute bronchitis, unspecified; D50.9 Iron deficiency anemia, unspecified; E87.6 Hypokalemia; Z74.01 Bed confinement status; K21.9 Gastro-esophageal reflux disease without esophagitis; N39.0 Urinary tract infection, site not specified; E03.9 Hypothyroidism, unspecified; B96.20 Unspecified Escherichia coli [E. coli] as the cause of diseases classified elsewhere; D63.8 Anemia in other chronic diseases classified elsewhere; B95.62 Methicillin resistant Staphylococcus aureus infection as the cause of diseases classified elsewhere; G71.2 Congenital myopathies; I42.9 Cardiomyopathy, unspecified; J98.11 Atelectasis
CPT/HCPCS: 36415; 36430; 36556; 36569; 36600; 70450; 71010; 71275; 80048; 80053; 80202; 81001; 82805; 82962; 83036; 83540; 83550; 83605; 83735; 83880; 84100; 84132; 84443; 84484; 85007; 85014; 85018; 85025; 85027; 85379; 85610; 86850; 86900; 86901; 86920; 86922; 87040; 87070; 87077; 87081; 87086; 87088; 87186; 87205; 92610; 93005; 93306; 93970; 94002; 94003; 94640; 95819; 96361; 96365; 96366; 96368; 99291; A4565; C9113; J0696; J1450; J1815; J2001; J2185; J2248; J2405; J2543; J3480; J3490; J7060